=== PATIENT | female | born 1980 | race Caucasian/White ===

== ENCOUNTER 2016-10-26 20:48 | Emergency (ER) | payer MEDICAID ==
[2016-10-27 00:21] LABS: PLATELET COUNT 210 x10^3mcL (130-400)
[2016-10-27 00:22] LABS: RED CELL DISTRIBUTION WIDTH 15.3 % (11.5-14.5)
[2016-10-27 00:38] LABS: CALCIUM 8.5 mg/dL (8.5-10.1); CARBON DIOXIDE 19.6 mmol/L (21-32); CHLORIDE SERUM 106 mmol/L (98-107); CREATININE SERUM 0.6 mg/dL (0.6-1.0); GFR1 > 60 mL/min; GLUCOSE SERUM 117 mg/dL (74-106); POTASSIUM SERUM 3.6 mmol/L (3.5-5.1); SODIUM SERUM 141 mmol/L (136-145)
[2016-10-27 00:43] LABS: ALBUMIN 3.5 g/dL (3.4-5.0); ALKALINE PHOSPHATASE 124 U/L (46-116); ALT/SGPT 19 U/L (14-59); AST/SGOT 17 U/L (15-37); TOTAL PROTEIN, SERUM 7.5 g/dL (6.4-8.2)
[2016-10-27 01:43] LABS: BAND NEUTROPHIL 4 % (0-10); BASOPHIL 0 % (0-2); SEGMENTED NEUTROPHILS 87 % (37-75)
[2016-10-27 01:44] LABS: PLATELET MORPHOLOGY PLATELETS NORMAL; rbc morphology (normal/abnorm) ABNORMAL (NORMAL)
[2016-10-27 01:51] VITALS: BP 125/76
== END 2016-10-27 01:51 | disposition home or self-care (01) ==
LOC: ED 20:48
PROVIDERS: Emergency Medicine
DX: N61.0 Mastitis without abscess (principal); B34.9 Viral infection, unspecified
CPT/HCPCS: 36415; 76641; J0696; J1885